=== PATIENT | female | born 1990 | race American Indian/Alaskan Native ===

== ENCOUNTER 2020-09-22 19:39 | Emergency (ER) | payer MEDICAID ==
--- NOTE | 2020-09-22 20:12 | Event Note ---
ED Screening Note Date of service: 09/22/20 Time: 20:12 ED Screening Note: 19 weeks complains of vaginal spotting today Denies pain This initial assessment/diagnostic orders/clinical plan/treatment(s) is/are subject to change based on patients health status, clinical progression and re- assessment by fellow clinical providers in the ED. Further treatment and workup at subsequent clinical providers discretion. Patient/guardian urged not to elope from the ED as their condition may be serious if not clinically assessed and managed. Initial orders include: Labs Ultrasound
[2020-09-22 20:30] LABS: Basophils % (Auto) 0.3 % (0.0-1.8); Eosinophils % (Auto) 0.6 % (0.0-4.3); Hematocrit 32.5 % (30.3-42.9); Hemoglobin 10.4 gm/dl (10.1-14.3); Lymphocytes # (Auto) 1.4 K/mm3 (1.2-5.4); Lymphocytes % (Auto) 17.3 % (13.4-35.0); Mean Corpuscular HGB Conc 32 % (30-34); Monocytes # (Auto) 0.7 K/mm3 (0.0-0.8); Monocytes % (Auto) 8.5 % (0.0-7.3); Platelet Count 183 K/mm3 (140-440); Red Blood Count 4.67 M/mm3 (3.65-5.03); Red Cell Distribution Width 14.7 % (13.2-15.2)
[2020-09-22 20:31] LABS: Mean Corpuscular Volume 70 fl (79-97)
[2020-09-22 20:47] LABS: Alanine Aminotransferase 9 units/L (7-56); Albumin 3.3 g/dL (3.9-5); Blood Urea Nitrogen 6 mg/dL (7-17); Calcium 8.9 mg/dL (8.4-10.2); Hemolysis Index 2
[2020-09-22 20:48] LABS: BUN/Creatinine Ratio 12
--- NOTE | 2020-09-22 21:29 | Ultrasound Report ---
US OB >= 14 wk fetus add gest, US OB transvaginal INDICATION / CLINICAL INFORMATION: vaginal spotting. COMPARISON: None available. FINDINGS: A single live fetus of approximately 20 weeks 1 day gestational age is seen in breech position. The p lacenta is anterior, grade 0 and free of the os. Greatest pocket of fluid measures 6.1 cm. hear t rate is 155 estimated birthweight is 368 g. BPD is 4.5 equaling 19 weeks 5 days Head circumference is 16.1 equaling 19 weeks 0 days Abdominal circumference is 16.8 equaling 21 weeks 6 days Femur length is 3.2 equaling 19 weeks 6 days IMPRESSION: Single live fetus of approximately 20 weeks 1 day gestational age in breech position. heart rat e is 155. Estimated weight is 368 g Signer Name: Eddie Denton MD FACR Signed: 09/22/2020 9:24 PM Workstation Name: [id number]
[2020-09-22 22:55] LABS: Bacteria,Urine 1+ /HPF (Negative); Bilirubin,Urine NEG (Negative); Blood,Urine LG (Negative); Color,Urine Amber (Yellow); Mucus,Urine 1+ /HPF; Urobilinogen,Urine < 2.0 mg/dL (<2.0)
[2020-09-23] MEDS ORDERED: LIDOCAINE-MPF (1%) 10 MG/1 ML VIAL 5 ML INFILTRATI ONE (02:18)
[2020-09-23] MEDS ORDERED: ACETAMINOPHEN 500 MG TAB PO ONE (02:18)
--- NOTE | 2020-09-23 03:44 | Emergency Department Report ---
ED Female HPI - General Chief complaint: Vaginal Bleeding Stated complaint: 19 WKS PREG SPOTTING Source: patient Mode of arrival: Ambulatory Limitations: No Limitations - History of Present Illness Initial comments: Patient is a A0 29-year-old -Latvian female who is approximately 19 weeks gestation and who presents to the ED with complaint of acute onset persistent vaginal spotting and suprapubic pressure for the last 12 hours. Patient states that the spotting has been intermittent as well as depression. Patient denies dysuria, urinary frequency and urgency, low back pain, abdominal pain, chest pain, shortness of breath, fever, chills, cough, dizziness, syncope, headache or nausea and vomiting and diarrhea. MD Complaint: vaginal bleeding, pelvic pain (Pressure) -: Sudden, hour(s) (12) Location: other (vaginal) Radiation: non-radiating Severity: mild Severity scale (0 -10): 2 Quality: cramping, dull Consistency: constant Improves with: none Worsens with: none Are you Now?: Yes (19 weeks gestation) Associated Symptoms: denies other symptoms, vaginal bleeding. denies: vaginal discharge, abdominal pain, nausea/vomiting, fever/chills, headaches, loss of appetite, dysuria, hematuria, rash, seizure, shortness of breath, syncope, weakness - Related Data Sexually active: Yes : 5 Para: 4 A: 0 Previous Rx's Medication Instructions Recorded Last Taken Type cephALEXin [Keflex] 500 mg PO Q6HR #40 capsule 09/23/20 Unknown Rx Allergies Allergy/AdvReac Type Severity Reaction Status Date / Time No Known Allergies Allergy Unverified 09/22/20 21:45 ED Review of Systems ROS: Stated complaint: 19 WKS PREG SPOTTING Other details as noted in HPI Constitutional: denies: chills, fever Eyes: denies: eye pain, eye discharge, vision change ENT: denies: ear pain, throat pain Respiratory: denies: cough, shortness of breath, wheezing Cardiovascular: denies: chest pain, palpitations Endocrine: no symptoms reported Gastrointestinal: denies: abdominal pain, nausea, diarrhea Genitourinary: abnormal menses (vaginal spotting). denies: urgency, dysuria, frequency, hematuria, discharge, dyspareunia Musculoskeletal: denies: back pain, joint swelling, arthralgia Skin: denies: rash, lesions Neurological: denies: headache, weakness, paresthesias Psychiatric: denies: anxiety, depression Hematological/Lymphatic: denies: easy bleeding, easy bruising ED Past Medical Hx - Past Medical History Previous Medical History?: No - Surgical History Past Surgical History?: No - Social History Smoking Status: Never Smoker Substance Use Type: None - Medications Home Medications: Home Medications Medication Instructions Recorded Confirmed Last Taken Type cephALEXin [Keflex] 500 mg PO Q6HR #40 capsule 09/23/20 Unknown Rx ED Physical Exam - General Limitations: No Limitations General appearance: alert, in no apparent distress - Head Head exam: Present: atraumatic, normocephalic, normal inspection - Eye Eye exam: Present: normal appearance, PERRL, EOMI Pupils: Present: normal accommodation - ENT ENT exam: Present: normal exam, normal orophraynx, mucous membranes moist, TM's normal bilaterally, normal external ear exam - Neck Neck exam: Present: normal inspection, full ROM - Respiratory Respiratory exam: Present: normal lung sounds bilaterally. Absent: respiratory distress, wheezes, rales, rhonchi, stridor, chest wall tenderness, accessory muscle use, decreased breath sounds, prolonged expiratory - Cardiovascular Cardiovascular Exam: Present: normal rhythm, tachycardia, normal heart sounds. Absent: systolic murmur, diastolic murmur, rubs, gallop - GI/Abdominal GI/Abdominal exam: Present: soft, normal bowel sounds. Absent: tenderness, guarding, rebound, hyperactive bowel sounds, hypoactive bowel sounds, organomegaly - Bi-manual exam: Present: other (Pelvic exam deferred, patient prefers own [facility] physician) - Extremities Exam Extremities exam: Present: normal inspection, full ROM, normal capillary refill - Back Exam Back exam: Present: normal inspection, full ROM. Absent: tenderness, CVA tenderness (R), CVA tenderness (L), muscle spasm, paraspinal tenderness, vertebral tenderness - Neurological Exam Neurological exam: Present: alert, oriented X3, CN II-XII intact, normal gait, reflexes normal - Psychiatric Psychiatric exam: Present: normal affect, normal mood - Skin Skin exam: Present: warm, dry, intact, normal color. Absent: rash ED Course Vital Signs 09/22/20 20:00 Temperature 98.1 F Pulse Rate 102 H Respiratory 18 Rate Blood Pressure 148/73 [Left] O2 Sat by Pulse 100 Oximetry ED Medical Decision Making - Lab Data Result diagrams: 09/22/20 20:16 09/22/20 20:16 - Radiology Data Radiology results: report reviewed, image reviewed Findings [facility] [address] [place] [address] Ultrasound Report Signed Patient: SOLE BENDER MR#: [id number] : 1990 Acct:[id number] Age/Sex: 29 / F ADM Date: 09/22/20 Loc: ED Attending Dr: Ordering Physician: ANA CORREA Date of Service: 09/22/20 Procedure(s): US OB >= 14 wk fetus add gest Accession Number(s): [id number] cc: ANA CORREA US OB >= 14 wk fetus add gest, US OB transvaginal INDICATION / CLINICAL INFORMATION: vaginal spotting. COMPARISON: None available. FINDINGS: A single live fetus of approximately 20 weeks 1 day gestational age is seen in breech position. The placenta is anterior, grade 0 and free of the os. Greatest pocket of fluid measures 6.1 cm. heart rate is 155 estimated birthweight is 368 g. BPD is 4.5 equaling 19 weeks 5 days Head circumference is 16.1 equaling 19 weeks 0 days Abdominal circumference is 16.8 equaling 21 weeks 6 days Femur length is 3.2 equaling 19 weeks 6 days IMPRESSION: Single live fetus of approximately 20 weeks 1 day gestational age in breech position. heart rate is 155. Estimated weight is 368 g Signer Name: Eddie Denton MD FACR Signed: 09/22/2020 9:24 PM Workstation Name: [id number] Transcribed By: MS Dictated By: Eddie Denton MD Electronically Authenticated By: Eddie Denton MD Signed Date/Time: 09/22/202123 DD/ 21 TD/TT: - Medical Decision Making This is a A0 29-year-old -Latvian female who is approximately 19 weeks gestation and who presents to the ED with complaint of acute onset persistent vaginal spotting and suprapubic pressure for the last 12 hours. Patient states that the spotting has been intermittent as well as depression. In the ED, patient is alert and oriented x3 and is in no distress. Lab test results were reviewed and showed hCG quant of 15,855 and significant urinary tract infection in urinalysis. The rest of the lab test results are nonactionable. Transvaginal ultrasound showed a single live fetus of approximately 20 weeks 1 day gestational age in breech position. heart rate is 155. Estimated weight is 368 g. Patient was treated in the ED with Rocephin 1 g intramuscular injection and Tylenol 1 g p.o. x1. Patient was discharged home on antibiotics and advised to follow-up with her primary care physician in 5 to 7 days for reevaluation or return to the ED immediately if symptoms get worse. - Differential Diagnosis UTI; Subchorionic bleed; Threatened miscarriage; fibroids; Ovarian cyst Critical care attestation.: If time is entered above; I have spent that time in minutes in the direct care of this critically ill patient, excluding procedure time. ED Disposition Clinical Impression: Threatened miscarriage, Acute urinary tract infection Disposition: TO HOME OR SELFCARE Is pt being admited?: No Does the pt Need Aspirin: No Condition: Stable Instructions: Threatened Miscarriage, Vaginal Bleeding During , Second Trimester, Urinary Tract Infection, Adult, [id number] Additional Instructions: Maintain a complete pelvic rest and take medications as advised. Follow-up with your [facility] physician in 3 to 5 days for reevaluation return to the ED immediat jarrod if symptoms get worse. Prescriptions: cephALEXin [Keflex] 500 mg PO Q6HR #40 capsule Referrals: TANNER RIVER MD [Referring] - 3-5 Days Time of Disposition: 03:48 Print Language: HONDURAN
[2020-09-23 04:47] VITALS: BP 136/89
== END 2020-09-23 04:25 | disposition home or self-care (01) ==
LOC: ED 19:39
DX: O23.42 Unspecified infection of urinary tract in pregnancy, second trimester (principal); O20.0 Threatened abortion; Z79.899 Other long term (current) drug therapy; Z3A.19 19 weeks gestation of pregnancy
CPT/HCPCS: 36415; 76805; 76817; 80053; 81001; 84702; 85025; 86900; 86901; 87086; 96372; 99284; J0696; 76810

== ENCOUNTER 2020-10-01 13:45 | Inpatient (IN) | payer MEDICAID ==
--- NOTE | 2020-10-01 16:14 | Event Note ---
Date: 10/01/20 (Vaginal bleeding that started 10/01/2020) Pt is a 29 y.o. @ 20.5 wks, with EDC 02/13/2021. She receives care with Jessica Kebede CNM @ [facility] Presented to labor and delivery triage with c/o painless vaginal bleeding. States the bleeding started on 09/30/2021. She was seen for a similar episode on 09/23/2020. she was diagnosed with UTI and given antibiotics. States that an ultrasound was completed and she was told that there were no complications. She has had 3 early losses around 19 wks. The first one in 2017 @ approximately 19 wks and a set of twins around the same gestation in 2018. She has had X4. She has had no complications this expect for an abnormal PAP smear. State she was to have another PAP on October 17. She has no medical or surgical history and states no use of drugs or alcohol. Exam reveal moderate amount of dark red blood in the vaginal vault, and a moderate amount of dark red blood on the peripad that pt is wearing. Consulted with Dr. Puri regarding plan, and will obtain ultrasound for further evaluation. Pt made aware of plan and verbalizes understanding at this time.
[2020-10-01] MEDS ORDERED: DOCUSATE SODIUM 100 MG CAP PO PRN (17:02)
[2020-10-01] MEDS ORDERED: ALUM-MAG HYDROXIDE-SIMETHICONE 200-200-20MG/5ML ORAL LIQD 30 ML PO PRN (17:02)
[2020-10-01] MEDS ORDERED: MAGNESIUM HYDROXIDE (MOM) ORAL LIQD UDC PO PRN ×2 (17:02→21:08)
[2020-10-01] MEDS ORDERED: ACETAMINOPHEN 325 MG TAB PO PRN ×2 (17:02→21:08)
[2020-10-01] MEDS ORDERED: LACTATED RINGERS 1,000 ML ONE (17:04)
[2020-10-01] MEDS: LACTATED RINGERS 1,000 ML IV SCH ×2 (17:20→18:21)
--- NOTE | 2020-10-01 17:20 | History and Physical Report ---
History of Present Illness Date of examination: 10/01/20 (Pt with heavy vaginal bleeding. ) Date of admission: 10/01/2020 Chief complaint: I've been having heavy vaginal bleeding since History of present illness: Heavy vaginal bleeding that started on 09/30/2020. Was seen for an earlier episode on 09/22/2020 and was sent home. States that she was told that the ultrasound that was completed during that visit was normal. Pt states no other complications this . No medical or surgical history. UTILIZATION SPECIALIST history of abnormal PAP that was to be repeated on October 17. Denies alcohol and drug use. Past History Past Medical History: no pertinent history Past Surgical History: no surgical history UTILIZATION SPECIALIST History: abnormal PAP smear (Was to have a repeat PAP in October 17. ) Family/Genetic History: none Social history: no significant social history - Obstetrical History Expected Date of Delivery: 02/13/21 Actual Gestation: 20 Week(s) 5 Day(s) : 7 Para: 4 Hx # Term Pregnancies: 4 Number of Pregnancies: 0 Spontaneous Abortions: 2 Induced : 0 Number of Living Children: 4 Medications and Allergies Allergies Allergy/AdvReac Type Severity Reaction Status Date / Time No Known Allergies Allergy Unverified 09/22/20 21:45 Home Medications Medication Instructions Recorded Confirmed Last Taken Type cephALEXin [Keflex] 500 mg PO Q6HR #40 capsule 09/23/20 Unknown Rx Active Meds: Active Medications Acetaminophen (Tylenol) 1,000 mg PO Q6H PRN PRN Reason: Pain MILD(1-3)/Fever >100.5/DELUNA Al Hydrox/Mg Hydrox/Simethicone (Alum-Mag Hydrox-Simeth [phone]/5ml) 30 ml PO Q6H PRN PRN Reason: Indigestion Docusate Sodium (Colace) 100 mg PO Q12H PRN PRN Reason: Constipation Lactated Ringer's (Lactated Ringers) 1,000 mls @ 125 mls/hr IV DIRECT WERO Magnesium Hydroxide (Milk Of Magnesia) 30 ml PO QHS PRN PRN Reason: Laxative Effect Multivitamins/Iron/Calcium ( Vitamin) 1 each PO QDAY WERO Review of Systems All systems: negative - Vital Signs Vital signs: Vital Signs Pulse BP 88 116/56 10/01/20 14:21 10/01/20 14:21 Temp Pulse Resp BP Pulse Ox 98.1 F 88 16 116/56 10/01/20 14:36 10/01/20 14:21 10/01/20 14:36 10/01/20 14:21 - Physical Exam Breasts: Positive: deferred Cardiovascular: Regular rate, Normal S1, Normal S2 Lungs: Positive: Normal air movement Abdomen: Positive: normal appearance, soft Genitourinary (Female): Positive: normal external genitalia, normal perenium Vulva: both: normal Vagina: Positive: normal moisture. Negative: discharge Cervix: Negative: lesion, discharge Uterus: Positive: normal size, normal contour Adnexa: both: normal Anus/Rectum: Positive: normal perianal skin, heme negative. Negative: rectal mass, hemorrhoids Extremities: Positive: normal Deep Tendon Reflex Grade: Normal +2 - Obstetrical FHR: auscultation normal Uterine Contraction Monitor Mode: External Cervical Dilatation: 10 ( parts in the vagina) Uterine Tone Measurement Phase: Resting Uterine Contraction Intensity: Moderate Results All other labs normal. LABS DRAWN ON ADMISSION. Assessment and Plan 29 y.o. @ 20.5 wks with heavy vaginal bleeding, in active labor. Vaginal exam: Moderate amount of dark red blood in vagina, along with parts felt. Plan made in consultation with Dr. Puri. Admit to labor and delivery for expectant management. IV pain medication ordered. - Patient Problems (1) Vaginal bleeding before 22 weeks gestation Onset Date: ~09/22/20 Current Visit: Yes Status: Acute Plan to address problem: Continue to monitor amount of vaginal bleeding. (2) 20 or more weeks gestation of Onset Date: ~09/26/20 Current Visit: Yes Status: Acute Plan to address problem: Ultrasound obtained, parts seen near cervix, fluid appears decreased. (3) Threatened in second trimester Onset Date: ~10/01/20 Current Visit: Yes Status: Acute Plan to address problem: Monitor amount of vaginal bleeding.
[2020-10-01] MEDS ORDERED: MINERAL OIL 30 ML ORAL LIQD PO PRN (17:23)
[2020-10-01] MEDS ORDERED: LIDOCAINE (2%) 20 MG/1 ML VIAL 20 ML MDV INFILTRATI ONE (17:23)
[2020-10-01] MEDS ORDERED: CARBOPROST TROMETHAMINE 250 MCG/1 ML INJ IM PRN (17:23)
[2020-10-01] MEDS ORDERED: OXYTOCIN 10 UNIT/1 ML INJ IM PRN (17:23)
[2020-10-01] MEDS ORDERED: LOPERAMIDE 2 MG CAP PO PRN (17:23)
[2020-10-01] MEDS ORDERED: ePHEDrine SULFATE 50 MG/1 ML INJ IV PRN (17:23)
[2020-10-01] MEDS ORDERED: METHYLERGONOVINE MALEATE 0.2 MG/ML VIAL IM PRN (17:23)
[2020-10-01] MEDS ORDERED: MORPHINE 2 MG/1 ML INJ IV PRN (17:25)
[2020-10-01] MEDS ORDERED: OXYTOCIN DRIP 30 UNITS/500 ML BAG IV SCH ×2 (18:00→22:00)
[2020-10-01] MEDS ORDERED: LACTATED RINGERS 1,000 ML IV SCH (18:00)
[2020-10-01 18:35] LABS: Basophils % (Auto) 0.1 % (0.0-1.8); Eosinophils % (Auto) 0.2 % (0.0-4.3); Hematocrit 30.7 % (30.3-42.9); Hemoglobin 9.8 gm/dl (10.1-14.3); Lymphocytes # (Auto) 1.2 K/mm3 (1.2-5.4); Mean Corpuscular HGB Conc 32 % (30-34); Mean Corpuscular Volume 70 fl (79-97); Monocytes # (Auto) 0.7 K/mm3 (0.0-0.8); Monocytes % (Auto) 6.9 % (0.0-7.3); Platelet Count 176 K/mm3 (140-440); Red Blood Count 4.38 M/mm3 (3.65-5.03)
--- NOTE | 2020-10-01 18:38 | Ultrasound Report ---
ULTRASOUND OBSTETRIC LIMITED INDICATION / CLINICAL INFORMATION: vaginal bleeding. Clinical Gestational Age (GA): 20 weeks. 5 days COMPARISON: 09/22/2020 FINDINGS: HEART RATE (beats per minute): 155 AMNIOTIC FLUID INDEX (cm) = one pocket of fluid measuring 4.2 cm is seen. (normal = 7-24 cm) PRESENTATION: Breech. ADDITIONAL FINDINGS: Placenta is anterior. IMPRESSION: 1. Single viable intrauterine with heart rate measuring 155 bpm. 2. Decreased amniotic fluid with one pocket measuring 4.2 cm. Concern for oligohydramnios. 3. Presentation of parts at the level of the cervix. Close clinical and ultrasound follow-up is recommended. Signer Name: Tej Lomeli MD Signed: 10/01/2020 6:34 PM Workstation Name: [id number]
[2020-10-01 19:05] LABS: Hepatitis C Virus Antibody Non-Reactive (NonReactive)
[2020-10-01] MEDS ORDERED: PROMETHAZINE 25 MG TAB PO PRN (21:08)
[2020-10-01] MEDS ORDERED: diphenhydrAMINE 25 MG CAP PO PRN (21:08)
[2020-10-01] MEDS ORDERED: LANOLIN/ZINC/DIMETHICONE (LANSINOH) 7 GM TP PRN (21:08)
[2020-10-01] MEDS ORDERED: ONDANSETRON 4 MG/2 ML INJ IV PRN (21:08)
[2020-10-01] MEDS ORDERED: BENZOCAINE/MENTHOL 20/0.5% TOP SPRAY 56 GM TP PRN (21:08)
[2020-10-01] MEDS ORDERED: WITCH HAZEL/ GLYCERIN PAD TP PRN (21:08)
--- NOTE | 2020-10-01 21:26 | Procedure Note ---
OB Delivery Note - Delivery Date of Delivery: 10/01/20 Probation Officer: DANK AYALA Estimated blood loss: other - Vaginal Delivery presentation: breech (footling) Intrapartum events: labor-<37 weeks Delivery induction: none Delivery monitor: external uterine Route of delivery: Delivery placenta: spontaneous Delivery cord: 3 umbilical vessels Episiotomy: none Delivery laceration: none Anesthesia: intravenous Delivery comments: SROM @ delivery for clear fluid. of pre term non viable male @ 20.5 wks over intact perineum. Cord cut and clamped and taken to warmer to be clean off for mother to hold. Spontaneous delivery of placenta, intact, complete, with what appears to be 3 vessels. Placenta to pathology. Perineum and vaginal inspected, no lacerations noted. Fundus firm, minimal bleeding noted. Apgars 0,0. Weight 1 pound. Mother left in stable condition in care of RN. Instruments and blue towels from precip kit counted and correct. - A at 1 minute: 0 at 5 minutes: 0 Gender: Male
[2020-10-01] MEDS ORDERED: DOCUSATE SODIUM 100 MG CAP PO SCH (22:00)
[2020-10-02 05:35] LABS: Bilirubin,Urine NEG (Negative); Blood,Urine LG (Negative); Color,Urine Red (Yellow); RBC,Urine > 182.0 /HPF (0.0-6.0); Urobilinogen,Urine < 2.0 mg/dL (<2.0)
[2020-10-02 05:36] LABS: WBC,Urine > 182.0 /HPF (0.0-6.0)
[2020-10-02 05:41] LABS: Amphetamine Screen,Urine PRESUMPTIVE NEGATIVE; Benzodiazepines Screen,Urine PRESUMPTIVE NEGATIVE; Cannabinoid Screen,Urine PRESUMPTIVE NEGATIVE; Cocaine Screen,Urine PRESUMPTIVE NEGATIVE; Methadone Screen,Urine PRESUMPTIVE NEGATIVE; Opiate Screen,Urine PRESUMPTIVE NEGATIVE
[2020-10-02] MEDS ORDERED: DIPHtheria,PERTUSSIS(ACELL),TETANUS VACCINE/PF 0.5 ML VIAL IM ONE (06:00)
--- NOTE | 2020-10-02 06:37 | Discharge Summary ---
Providers - Providers Date of Admission: 10/01/20 17:02 Date of discharge: 10/02/20 (pt req d/c today when possible) Attending physician: BARBI ANDERSON Primary care physician: BARBI ANDERSON Hospitalization Reason for admission: IUP - , vaginal bleeding Delivery: Episiotomy: none Laceration: none Other procedures: none Discharge diagnosis: delivery baby: male (demise @ 20w) Hospital course: IUP @ 20 weeks vaginal bleeding of demise male fetus Pt W/O c/o this AM. Desires d/c Exp that she has to be 24hr w/o fever which is 2000 tonight Pt voiced understanding. VSS afebrile. FF well below umb Lochia scant. H&H pending Pt w/o s/sx of anemia. Stable s/p vag del demise. P: d/c today with instructions DEPO requested. RTO 4 weeks PP care Condition at discharge: Good Disposition: DC-01 TO HOME OR SELFCARE - Discharge Diagnoses (1) delivery, delivered Status: Acute Comment: RTO 4 weeks for PP care Plan - Provider Discharge Summary Activity: routine, no sex for 6 weeks, no heavy lifting 4 weeks, no strenuous exercise Diet: routine Instructions: routine Additional instructions: [] Smoking cessation referral if applicable(refer to patient education folder for contact #) [] Refer to [facility] Booklet Call your doctor immediately for: * Fever > 100.5 * Heavy vaginal bleeding ( >1 pad per hour) * Severe persistent headache * Shortness of breath * Reddened, hot, painful area to leg or breast * Drainage or odor from incision. * Keep incision clean and dry at all times and follow doctor's instructions regarding bathing/showering - Follow up plan Follow up: BARBI ANDERSON MD [Primary Care Provider] - 11/01/20 (Please call [phone] to schedule your visit in 4 weeks. Motrin/ibuprofen for pain/cramping. Call with concerns.)
[2020-10-02] MEDS ORDERED: medroxyPROGESTERone ACETATE 150 MG/ML SYRINGE IM NR (06:42)
[2020-10-02] MEDS: IBUPROFEN 800 MG TAB PO SCH ×2 (08:05→17:30)
[2020-10-02] MEDS ORDERED: PRENATAL VIT27-FE FUMARATE-FOLIC ACID VIT TAB PO SCH ×2 (10:00)
[2020-10-02 16:59] LABS: Hematocrit 30.3 % (30.3-42.9); Hemoglobin 9.8 gm/dl (10.1-14.3)
[2020-10-02 17:14] VITALS: BP 100/48
== END 2020-10-02 20:43 | disposition home or self-care (01) | DRG 775 ==
LOC: APU 13:45 → TRG 13:45 → LD 17:02 → OB 10-02 02:08
PROVIDERS: ADMIT Obstetrics & Gynecology; ATTEND Obstetrics & Gynecology
PROC: 10E0XZZ Delivery of Products of Conception, External Approach (ICD-10-PCS; principal; 2020-10-01)
PROC: 3E0234Z Introduction of Serum, Toxoid and Vaccine into Muscle, Percutaneous Approach (ICD-10-PCS; 2020-10-02)
DX: O60.12X0 Preterm labor second trimester with preterm delivery second trimester, not applicable or unspecified (principal); O20.0 Threatened abortion; Z37.1 Single stillbirth; Z23 Encounter for immunization; O32.8XX0 Maternal care for other malpresentation of fetus, not applicable or unspecified; Z3A.20 20 weeks gestation of pregnancy
CPT/HCPCS: 36415; 76815; 80307; 81001; 85014; 85018; 85025; 86592; 86706; 86762; 86803; 86850; 86900; 86901; 87806; 88305; G0378; J0690; J2270; J7120; U0003